=== PATIENT | male | born 1960 | race Caucasian/White ===

== ENCOUNTER 2019-06-23 15:26 | Emergency (ER) | payer OTHER ==
[~2019-06-23] VITALS: Ht 190.5 cm; Wt 72.6 kg
--- NOTE | 2019-06-23 15:39 | NUR ---
Patient discharged to home in stable conditon & brisl steady gait. Written and verbal after care instructions given to patient. Patient verbalizes understanding and compliance of instructions.
== END 2019-06-23 15:42 | disposition home or self-care (01) ==
LOC: ER 15:29
DX: L03.211 Cellulitis of face (principal)
CPT/HCPCS: A4663

== ENCOUNTER 2021-05-20 19:47 | Inpatient (IN) | payer OTHER ==
[~2021-05-20] VITALS: Ht 190.5 cm; Wt 72.6 kg
[2021-05-20] MEDS ORDERED: IV NORMAL SALINE 1000 ML BAG IV ONE (20:00)
--- NOTE | 2021-05-20 20:22 | NUR ---
Xray at bedside.
--- NOTE | 2021-05-20 20:30 | NUR ---
Pt out of ER for CT.
[2021-05-20 20:34] LABS: HEMATOCRIT 46.2 % (36.7-47.1); MEAN CORPUSCULAR HEMOGLOBIN 29.6 uug (23.8-33.4); MEAN CORPUSCULAR VOLUME 92.4 fL (73.0-96.2); PLATELET COUNT (AUTO) 191 K/uL (152-348)
[2021-05-20 20:39] LABS: ETHANOL < 3 MG/DL (0-0)
[2021-05-20 20:40] LABS: ALANINE AMINOTRANSFERASE 26 U/L (16-63); ALKALINE PHOSPHATASE 101 U/L (50-136); ASPARTATE AMINOTRANSFERASE 21 U/L (15-37); BILIRUBIN,DIRECT 0.1 mg/dL (0.0-0.2); BILIRUBIN,TOTAL 0.4 mg/dL (0.2-1.0); CARBON DIOXIDE 36 mmol/L (21-32); CHLORIDE 101 mmol/L (98-107); CREATININE 1.3 mg/dL (0.6-1.3); GLUCOSE 123 mg/dL (74-106); POTASSIUM 4.7 mmol/L (3.5-5.1); TOTAL PROTEIN, SERUM 7.8 g/dL (6.4-8.2); UREA NITROGEN, BLOOD 27 mg/dL (7-18)
--- NOTE | 2021-05-20 20:50 | NUR ---
Pt back to ER from CT.
--- NOTE | 2021-05-20 20:53 | NUR ---
Respiratory at bedside to place pt on bipap.
--- NOTE | 2021-05-20 23:05 | NUR ---
Inserted Florez catheter, pt tolerated procedure well, urine sample collected, sent to lab.
[2021-05-20 23:30] LABS: *BILIRUBIN,URIN NEGATIVE (NEGATIVE); *CLARITY,URINE CLEAR (CLEAR); *COLOR,URINE YELLOW (YELLOW); *KETONES,URINE 1+ (NEGATIVE); *UROBILINOGEN,URINE 0.2 E.U./dl (NORMAL); LEUKOCYTE ESTERASE ,URINE NEGATIVE (NEGATIVE); NITRITE, URINE NEGATIVE (NEGATIVE); PH,URINE 5.5 (5.0-8.0); UGLUCOSE NEGATIVE (NEGATIVE)
[2021-05-20 23:31] LABS: *BLOOD, URINE TRACE (NEGATIVE)
[2021-05-20 23:42] LABS: BACTERIA,URINE NONE SEEN /HPF (NONE SEEN); SQUAMOUS EPITHELIAL CELL,UR FEW /HPF (NONE SEEN); WBC,URINE 0-3 /HPF (0-3)
[2021-05-20 23:44] LABS: *AMPHETAMINE, URINE NEGATIVE (NEGATIVE); *CANNABINOID, URINE NEGATIVE (NEGATIVE); *COCCAINE, URINE POSITIVE (NEGATIVE); *OPIATE, URINE NEGATIVE (NEGATIVE); *PHENCYCLIDINE SCREEN,URINE NEGATIVE (NEGATIVE)
--- NOTE | 2021-05-21 00:11 | NUR ---
PATIENT WITH RESP. DISTRESS, USE OF ACCESSORY MUSCLE, PT ON 10L/M NC, INCREASE TO 6L/M NC, APPROX. 20:45 , AG WAS DONE, THEN RESULTS GIVEN TO DR EL, ORDER THEN FOR BI/PAP INITIAL SETTINGS, 15/5 RATE 20,50%, KEEP SAT 88-92 % , PT WITH A HIGH PCO2 , MONITOR CLOSELY, PT SEMI LETHARGIC. 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
--- NOTE | 2021-05-21 00:20 | NUR ---
Called [facility] to page Chika Ellis NP.
--- NOTE | 2021-05-21 00:28 | NUR ---
Called patient's house to get medication list, no answer, left voicemail.
--- NOTE | 2021-05-21 00:39 | NUR ---
Dr. Ruiz on panel call with Chika Ellis NP.
[2021-05-21] MEDS ORDERED: IV NS 1000 ML 1,000 ML IV PRN (01:30)
[2021-05-21] MEDS ORDERED: ONDANSETRON 4 MG/2 ML VIAL IV PRN (01:30)
[2021-05-21] MEDS ORDERED: MAGNESIUM HYDROXIDE 30 ML LIQUID UDC PO PRN (01:30)
[2021-05-21] MEDS ORDERED: ACETAMINOPHEN 325 MG TABLET PO PRN (01:30)
--- NOTE | 2021-05-21 01:46 | NUR ---
Report given to Dandy MALDONADO Tele.
[2021-05-21 02:26] VITALS: BP 149/103
[2021-05-21] MEDS: hydrALAZINE HCL IV 20 MG in IV NORMAL SALINE 50 ML IV SCH ×2 (03:03→05:20)
[2021-05-21 04:15] VITALS: BP 151/100
--- NOTE | 2021-05-21 06:00 | NUR ---
pt rested well in between care; repositioned for comfort; tolerated present BiPap setting and saturated 95%; pt had some snacks earlier while on 2L NC and sats 92. safety maintained; continue to monitor; continue plan of care.
[2021-05-21 06:28] LABS: ABG HCO3 35.6 mmol/L; ABG PCO2 101.4 mmHg (35.0-45.0); ABG PH 7.163 (7.350-7.450); ABG SITE LEFT RADIAL; ABG TOTAL HEMOGLOBIN 15.3 G/dL (13.5-18.0); COHb 2.4 % (0.5-1.5); MetHb 0.4 % (0.0-1.5); O2Hb 96.5 % (94.0-97.0); VENT MODE BIPAP
--- NOTE | 2021-05-21 08:00 | NUR ---
PT alert and oriented x 4. PT on BIPAP as ordered with saturation of 96%. Call light is within reach.
[2021-05-21] MEDS ORDERED: methylPREDNISolone SOD SUCC 125 MG/2 ML VIAL IV SCH (09:15)
--- NOTE | 2021-05-21 10:00 | NUR ---
Dr burger here to see patient notified of abg result. Per discussion between RT and DR burger pt ok to stay @ 4 liters with sat of 92%.
[2021-05-21 10:56] LABS: ABG BASE EXCESS 9.5 mmol/L; ABG HCO3 33.8 mmol/L; ABG PCO2 44.4 mmHg (35.0-45.0); ABG PO2 54.4 mmHg (75.0-100.0); ABG SITE LEFT RADIAL; ABG TOTAL HEMOGLOBIN 14.3 G/dL (13.5-18.0); COHb 1.2 % (0.5-1.5); MetHb 0.2 % (0.0-1.5); O2Hb 91.3 % (94.0-97.0); VENT MODE Nasal Cannula
[2021-05-21] MEDS ORDERED: ALBUTEROL SULFATE 2.5 MG/3 ML NEBU NEB PRN (11:15)
[2021-05-21] MEDS ORDERED: LISI20TA30 PO (12:09)
[2021-05-21] MEDS ORDERED: AMLO10TA59 PO (12:09)
[2021-05-21] MEDS ORDERED: hydrALAZINE HCL IV 20 MG in IV NORMAL SALINE 50 ML IV SCH (14:00)
[2021-05-21] MEDS: hydrALAZINE HCL 25 MG TABLET PO SCH ×2 (14:34→22:29)
[2021-05-21] MEDS: AMLODIPINE 10 MG TABLET PO SCH (16:50)
--- NOTE | 2021-05-21 18:00 | NUR ---
PT calling his main contact jose SILVA stating that he wants to leave AMA. Spoke with pt re staying over and that his CO2 is still elevated. PT tolerated 4lit with sat of 93%.
[2021-05-21 20:09] VITALS: BP 133/91
--- NOTE | 2021-05-21 22:00 | NUR ---
pt tolerating 4L NC; pt resting assisted with needs; tolerating current oxygen setting; no SOB; pt becomes tachy when pt urinating while standing up; continue to monitor.
[2021-05-22 00:03] VITALS: BP 140/93
[2021-05-22 04:09] VITALS: BP 139/93
[2021-05-22] MEDS: hydrALAZINE HCL 25 MG TABLET PO SCH ×2 (06:02→15:01)
[2021-05-22 06:46] LABS: HEMATOCRIT 43.6 % (36.7-47.1); MEAN CORPUSCULAR HEMOGLOBIN 29.2 uug (23.8-33.4); MEAN CORPUSCULAR VOLUME 88.9 fL (73.0-96.2); PLATELET COUNT (AUTO) 180 K/uL (152-348)
[2021-05-22 07:02] LABS: CREATININE 1.2 mg/dL (0.6-1.3); MAGNESIUM 2.1 mg/dL (1.8-2.4); PHOSPHOROUS 1.2 mg/dL (2.5-4.9); POTASSIUM 3.6 mmol/L (3.5-5.1)
[2021-05-22] MEDS: AMLODIPINE 10 MG TABLET PO SCH (08:34)
[2021-05-22 08:43] VITALS: BP 144/95
[2021-05-22] MEDS ORDERED: methylPREDNISolone SOD SUCC 125 MG/2 ML VIAL IV SCH (09:00)
[2021-05-22] MEDS ORDERED: methylPREDNISolone SOD SUCC 40 MG/ML VIAL IV SCH (09:00)
[2021-05-22] MEDS ORDERED: DOXY100C5 PO (11:06)
[2021-05-22] MEDS ORDERED: PRED20TA PO (11:06)
[2021-05-22 11:35] VITALS: BP 139/96
--- NOTE | 2021-05-22 15:12 | NUR ---
Discharge instructions reviewed with patient, as well as importance of following medication regimen, and to f/u with golf course assistant, patients expressed understanding. patients inventory list completed, patient stated his mother mina ronquillo will pick him up.
--- NOTE | 2021-05-22 15:13 | NUR ---
per patient mother is downstairs in lobby, iv site removed, minimal bleeding noted, patient wheeled downstairs. patient stable at time of discharge. v/s wnl, afebrile, no c.o sob at the time, rr even and non-labored. patient left on 4l via tank.
[2021-05-22 15:23] VITALS: BP 139/101
[2021-05-22] MEDS ORDERED: NEUTRA PHOS PACKET PO ONE (15:30)
[2021-05-22] MEDS ORDERED: ATORVASTATIN 10 MG TABLET PO SCH (21:00)
== END 2021-05-22 15:15 | disposition home or self-care (01) | DRG 816 ==
LOC: ER 19:48 → TELE3 05-21 01:50
PROVIDERS: ADMIT Nurse Practitioner Family; ATTEND Nurse Practitioner Family
PROC: 5A09357 Assistance with Respiratory Ventilation, Less than 24 Consecutive Hours, Continuous Positive Airway Pressure (ICD-10-PCS; principal; 2021-05-21)
DX: T40.5X1A Poisoning by cocaine, accidental (unintentional), initial encounter (principal); J96.01 Acute respiratory failure with hypoxia; G92.9 Unspecified toxic encephalopathy; J96.02 Acute respiratory failure with hypercapnia; E87.0 Hyperosmolality and hypernatremia; E87.2 Acidosis; E86.0 Dehydration; J44.9 Chronic obstructive pulmonary disease, unspecified; R00.0 Tachycardia, unspecified; I10 Essential (primary) hypertension; Z20.822 Contact with and (suspected) exposure to COVID-19; Z87.891 Personal history of nicotine dependence; M19.90 Unspecified osteoarthritis, unspecified site; J98.11 Atelectasis; Z99.81 Dependence on supplemental oxygen; F14.188 Cocaine abuse with other cocaine-induced disorder; Y92.009 Unspecified place in unspecified non-institutional (private) residence as the place of occurrence of the external cause
CPT/HCPCS: 36415; 36600; 70030-TC; 70450; 71045; 83605; 83735; 84100; 85025; 85730; 93005; 94660; A4663; C1758; G0378; G0480; J0360; J2920; J2930; J3490; J7030

== ENCOUNTER 2021-06-15 15:33 | Emergency (ER) | payer OTHER ==
[~2021-06-15] VITALS: Ht 190.5 cm; Wt 77.1 kg
[~2021-06-15 15:33] MED LIST: AMLO10TA59 PO; DOXY100C5 PO; LISI20TA30 PO; PRED20TA PO
[2021-06-15 15:56] LABS: ABG BASE EXCESS -2.3 mmol/L; ABG PCO2 94.2 mmHg (35.0-45.0); ABG PH 7.121 (7.350-7.450); ABG PO2 65.1 mmHg (75.0-100.0); ABG SITE LEFT RADIAL; COHb 1.6 % (0.5-1.5); MetHb 0.4 % (0.0-1.5); O2Hb 89.2 % (94.0-97.0); VENT MODE Nasal Cannula
[2021-06-15] MEDS ORDERED: ALBUTEROL SULFATE 2.5 MG/3 ML NEBU NEB ONE (16:00)
[2021-06-15] MEDS ORDERED: IPRATROPIUM BROMIDE 0.5 MG/2.5 ML NEBU NEB ONE (16:00)
[2021-06-15] MEDS ORDERED: methylPREDNISolone SOD SUCC 125 MG/2 ML VIAL IV ONE (16:00)
[2021-06-15 16:09] LABS: HEMATOCRIT 43.6 % (36.7-47.1); MEAN CORPUSCULAR HEMOGLOBIN 29.1 uug (23.8-33.4); PLATELET COUNT (AUTO) 195 K/uL (152-348)
[2021-06-15 16:16] LABS: CARBON DIOXIDE 35 mmol/L (21-32); CHLORIDE 97 mmol/L (98-107); CREATININE 2.4 mg/dL (0.6-1.3); ETHANOL < 3 MG/DL (0-0); GLUCOSE 141 mg/dL (74-106); POTASSIUM 4.7 mmol/L (3.5-5.1); UREA NITROGEN, BLOOD 59 mg/dL (7-18)
[2021-06-15] MEDS ORDERED: IPRATROPIUM BROMIDE 0.5 MG/2.5 ML NEBU ONE (16:27)
[2021-06-15] MEDS ORDERED: ALBUTEROL SULFATE 2.5 MG/3 ML NEBU ONE (16:27)
[2021-06-15 16:28] LABS: ALANINE AMINOTRANSFERASE 24 U/L (16-63); ALKALINE PHOSPHATASE 94 U/L (50-136); ASPARTATE AMINOTRANSFERASE 32 U/L (15-37); BILIRUBIN,DIRECT 0.1 mg/dL (0.0-0.2); BILIRUBIN,TOTAL 0.3 mg/dL (0.2-1.0); TOTAL PROTEIN, SERUM 7.4 g/dL (6.4-8.2)
[2021-06-15 16:29] LABS: THYROID STIMULATING HORMONE 0.594 mIU/mL (0.358-3.740)
[2021-06-15 16:30] LABS: ACETAMINOPHEN < 2.0 ug/mL (10-30)
[2021-06-15] MEDS ORDERED: methylPREDNISolone SOD SUCC 125 MG/2 ML VIAL ONE (16:30)
--- NOTE | 2021-06-15 17:04 | NUR ---
Patient is resting comfortably on gurney with eyes closed and he is tolerating the BIPAP well. Current BIPAP parameters are: rate=20, IPAP=15, EPAP=5, FiO2=50%.
[2021-06-15] MEDS ORDERED: IV NS 1000 ML 1,000 ML IV PRN (17:15)
[2021-06-15] MEDS ORDERED: Z GUARD REMEDY PASTE 57 GM TUBE TOP PRN (17:15)
[2021-06-15] MEDS ORDERED: ALBUTEROL SULFATE 2.5 MG/ 0.5 ML NEBU NEB ONE (17:15)
[2021-06-15] MEDS ORDERED: MAGNESIUM HYDROXIDE 30 ML LIQUID UDC PO PRN (17:15)
[2021-06-15] MEDS ORDERED: ACETAMINOPHEN 325 MG TABLET PO PRN (17:15)
[2021-06-15] MEDS ORDERED: IPRATROPIUM BROMIDE 0.5 MG/2.5 ML NEBU NEB SCH (17:15)
[2021-06-15] MEDS ORDERED: ONDANSETRON 4 MG/2 ML VIAL IV PRN (17:15)
--- NOTE | 2021-06-15 17:50 | NUR ---
[facility] hospitalist ([email or web address].
[2021-06-15 17:59] LABS: *BILIRUBIN,URIN NEGATIVE (NEGATIVE); *BLOOD, URINE NEGATIVE (NEGATIVE); *COLOR,URINE YELLOW (YELLOW); *KETONES,URINE NEGATIVE (NEGATIVE); *UROBILINOGEN,URINE 0.2 E.U./dl (NORMAL); LEUKOCYTE ESTERASE ,URINE NEGATIVE (NEGATIVE); NITRITE, URINE NEGATIVE (NEGATIVE); UGLUCOSE NEGATIVE (NEGATIVE)
[2021-06-15] MEDS ORDERED: AZITHROMYCIN IV 500 MG in IV DEXTROSE 5% 250 ML IV ONE (18:00)
[2021-06-15] MEDS ORDERED: CEFTRIAXONE 1 G in IV DEXTROSE 5% 50 ML IV ONE (18:00)
[2021-06-15 18:07] LABS: *CLARITY,URINE SLIGHTLY HAZY (CLEAR); BACTERIA,URINE FEW /HPF (NONE SEEN); RBC,URINE 0-3 /HPF (0-3); SQUAMOUS EPITHELIAL CELL,UR FEW /HPF (NONE SEEN); URINE AMORPHOUS URATE MODERATE /HPF
[2021-06-15 18:14] LABS: *AMPHETAMINE, URINE NEGATIVE (NEGATIVE); *CANNABINOID, URINE NEGATIVE (NEGATIVE); *COCCAINE, URINE POSITIVE (NEGATIVE); *OPIATE, URINE NEGATIVE (NEGATIVE); *PHENCYCLIDINE SCREEN,URINE NEGATIVE (NEGATIVE)
[2021-06-15] MEDS ORDERED: AZITHROMYCIN 500MG/ D5W 250ML IVPB **ER PYXIS ONLY IV ONE (18:38)
[2021-06-15] MEDS ORDERED: CEFTRIAXONE /D5W 50ML IVPB **ER PYXIS IV ONE (18:38)
--- NOTE | 2021-06-15 19:14 | NUR ---
SBAR given to JOEL Spears. Patient is waiting for ICU/CCU beds@this time.
--- NOTE | 2021-06-15 19:15 | NUR ---
RECEIVED REPORT FROM JOEL VIDAL. PT NOTED TO BE IN BED, IN NO DISTRESS. VITALS STABLE.
[2021-06-15 19:23] LABS: ABG BASE EXCESS 0.1 mmol/L; ABG HCO3 29.5 mmol/L; ABG PCO2 70.8 mmHg (35.0-45.0); ABG PH 7.237 (7.350-7.450); ABG PO2 102.1 mmHg (75.0-100.0); ABG SITE RIGHT RADIAL; ABG TOTAL HEMOGLOBIN 14.3 G/dL (13.5-18.0); COHb 1.3 % (0.5-1.5); MetHb 0.4 % (0.0-1.5); O2Hb 96.2 % (94.0-97.0); VENT MODE BIPAP 15/5
--- NOTE | 2021-06-15 19:23 | NUR ---
Patient is resting comfortably on gurney and is tolerating the BIPAP well. Current BIPAP parameters are: rate=20, IPAP=20, EPAP=5, FiO2=50%. Awake and alert, verbal, denies any pain and discomfort at this time. Bed in lowest position for safety precautions.
--- NOTE | 2021-06-15 19:44 | NUR ---
Pt is on Respironics V-60 on settings of BIPAP 20/5, resp. rate 20, FIO2-50%. No resp. distress noted. Pt to be monitored throughout the shift. BVM is at bedside.
--- NOTE | 2021-06-15 20:37 | NUR ---
ariana méndez juanjose called for status update. update on condition provided.
--- NOTE | 2021-06-15 21:55 | NUR ---
Patient is resting comfortably in bed with eyes closed. Tolerating BiPap.
--- NOTE | 2021-06-15 23:42 | NUR ---
PT VOMITED CLEAR FLUID AT 2320 PM. BIPAP MASK WAS REMOVED AND CLEANED. PT'S MOUTH WAS CLEANED. PT REFUSED TO HAVE A NEW BIPAP MASK PLACED. PT WAS PLACED ON [address] EL WAS AT BEDSIDE TO [place] PATIENT. PATIENT REMAINS ON 4 LITERS NC. STAT ABG ORDERED. OFFERED ZOFRAN IVP FOR PATIENT INITIALLY HE SAID HE WOULD TAKE THE MEDICINE UPON BEDSIDE HE CHANGED HIS MIND AND SAYS HE NO LONGER WANTS THE ZOFRAN.
--- NOTE | 2021-06-15 23:45 | NUR ---
RT IS A BEDSIDE TO DRAW PATIENT FOR STAT ABG ORDERED.
[2021-06-15] MEDS ORDERED: ONDANSETRON 4 MG/2 ML VIAL ONE (23:47)
[2021-06-16] LABS: ABG BASE EXCESS 5.5 mmol/L; ABG PCO2 54.4 mmHg (35.0-45.0); ABG PH 7.388 (7.350-7.450); ABG PO2 72.9 mmHg (75.0-100.0); ABG SITE RIGHT RADIAL; ABG TOTAL HEMOGLOBIN 14.7 G/dL (13.5-18.0); MetHb 0.3 % (0.0-1.5); O2Hb 94.4 % (94.0-97.0); VENT MODE Nasal Cannula
--- NOTE | 2021-06-16 00:07 | NUR ---
ABG RESULTS GIVEN TO DR. EL. ABG FOLLOWS PH 7.38 PCO2 54.4 PO2 72.9 HCO3 32.0. KEEP PT ON [address] EL PT MAY EAT AND DRINK.
--- NOTE | 2021-06-16 00:31 | NUR ---
pt was assisted to side of bed to stand to urinate. pt was able to urinate 400 clear yellow urine. provided pt with sandwhich and hot tea.
--- NOTE | 2021-06-16 01:31 | NUR ---
pt remains on 4 liters nc, glen well. vss, pt resting with eyes closed.
--- NOTE | 2021-06-16 03:49 | NUR ---
Patient is resting comfortably in bed with eyes closed. Breathing even and unlabored. Vitals stable.
--- NOTE | 2021-06-16 05:42 | NUR ---
PROVIDED PT WITH ORAL HYDRATION. DENIES ANY PAIN/DISCOMFORT. VITALS STABLE. NOTED TO BE WATCHING TV.
--- NOTE | 2021-06-16 06:16 | NUR ---
assisted pt to stand, pt was able to urinate without any difficulites. pt denies sob, or c/p.
--- NOTE | 2021-06-16 06:26 | NUR ---
Pt refused ABG. No resp. distress noted.
--- NOTE | 2021-06-16 07:00 | NUR ---
Recived pt from chiki rn and Miccheal rn ( orintation) pt awake and alert respiration spont and easy Hob elevated withFIO 2 LNC CONTENUE ON o2 sat 96% pt able to verblized need
--- NOTE | 2021-06-16 07:14 | NUR ---
GAVE REPORT TO JAKE, WASHERY ENGINEER.
[2021-06-16 07:19] LABS: HEMATOCRIT 38.2 % (36.7-47.1); MEAN CORPUSCULAR VOLUME 88.8 fL (73.0-96.2); PLATELET COUNT (AUTO) 167 K/uL (152-348)
[2021-06-16 07:31] LABS: BILIRUBIN,TOTAL 0.3 mg/dL (0.2-1.0); CREATININE 2.2 mg/dL (0.6-1.3); MAGNESIUM 2.3 mg/dL (1.8-2.4); PHOSPHOROUS 2.2 mg/dL (2.5-4.9); POTASSIUM 4.5 mmol/L (3.5-5.1); TOTAL PROTEIN, SERUM 6.1 g/dL (6.4-8.2)
--- NOTE | 2021-06-16 08:00 | NUR ---
PT fully awake and alert respiration spont and easy fio2 4lnc contenue on pulas oxmitery 96-97% hob 45% all time breackfeast obtended eat will 90% tolorated po intack
[2021-06-16] MEDS ORDERED: methylPREDNISolone SOD SUCC 40 MG/ML VIAL ONE (08:48)
[2021-06-16] MEDS ORDERED: methylPREDNISolone SOD SUCC 40 MG/ML VIAL IV SCH (09:00)
--- NOTE | 2021-06-16 09:30 | NUR ---
pt refused contenue tx and admin in hospitale inpt and requsted to sign AMA PT FULLY AND VERBLIZED UNDERSTOOD RISK OF LEAVING HOSPITALE AND he need O2 all time he HE WILL pt said i have o2 at home HERE AWRE PT WHAN sign AMA HE WILL CAME BACK to [place] with pt at 10am notefy pt pt refused and requsted to leave befor to [place] with
--- NOTE | 2021-06-16 09:45 | NUR ---
MOTHER HERE AT BED SIDE fully understood risk of leaving pt AMA HE need o2 in this mint pt fully awake and alert walking with stady gait no distress fio2 with mother in car d/c hl done and elie tapia no bleeding on site accompany pt to mother car pt appled o2 in care and he was diver
[2021-06-16 10:31] VITALS: BP 125/80
== END 2021-06-16 09:50 | disposition left against medical advice (07) ==
LOC: ER 15:34
DX: J96.21 Acute and chronic respiratory failure with hypoxia (principal); R91.8 Other nonspecific abnormal finding of lung field; J96.22 Acute and chronic respiratory failure with hypercapnia; G93.41 Metabolic encephalopathy; R55 Syncope and collapse; I24.8 Other forms of acute ischemic heart disease; E87.4 Mixed disorder of acid-base balance; N17.9 Acute kidney failure, unspecified; I12.9 Hypertensive chronic kidney disease with stage 1 through stage 4 chronic kidney disease, or unspecified chronic kidney disease; N18.9 Chronic kidney disease, unspecified; J44.9 Chronic obstructive pulmonary disease, unspecified; E78.49 Other hyperlipidemia; Z20.822 Contact with and (suspected) exposure to COVID-19; Z53.29 Procedure and treatment not carried out because of patient's decision for other reasons
CPT/HCPCS: 36415; 36600 ×3; 51702; 70450; 71045; 80048; 80053; 80076; 80179; 80299; 80307; 80320; 81001; 82962; 83735; 83880; 84100; 84443; 84484 ×3; 85025 ×2; 85730; 87040 ×2; 87086; 87426; 93005; 94644; 94660; 96365; 96366; 96367; 96368; 96375; 96376; 99291; J0456; J0696; J2920; J2930; 70030-TC; A4663; C1758; G0480; J2405; J3590

== ENCOUNTER 2021-06-30 14:36 | Emergency (ER) | payer OTHER ==
[~2021-06-30] VITALS: Ht 190.5 cm; Wt 77.1 kg
[2021-06-30] MEDS ORDERED: MORPHINE SULFATE 2 MG/1 ML DISP.SYRIN IV ONE (14:45)
[2021-06-30] MEDS ORDERED: ONDANSETRON 4 MG/2 ML VIAL IV ONE (14:45)
[2021-06-30] MEDS ORDERED: MORPHINE SULFATE 4 MG/1 ML DISP.SYRIN ONE (14:56)
[2021-06-30] MEDS ORDERED: ONDANSETRON 4 MG/2 ML VIAL ONE (14:56)
[2021-06-30] MEDS ORDERED: BACK1EAC12 MC (16:20)
[2021-06-30] MEDS ORDERED: HYDR-3980 PO (16:23)
--- NOTE | 2021-06-30 16:43 | NUR ---
Removed IV intact, site okay, bandaged. Gave pt RX and d/c instructions, pt verbalized understanding.
[2021-06-30 16:45] VITALS: BP 144/101
== END 2021-06-30 16:47 | disposition home or self-care (01) ==
LOC: ER 14:37
DX: S22.079A Unspecified fracture of T9-T10 vertebra, initial encounter for closed fracture (principal); X58.XXXA Exposure to other specified factors, initial encounter; Y92.89 Other specified places as the place of occurrence of the external cause; J44.9 Chronic obstructive pulmonary disease, unspecified; Z99.81 Dependence on supplemental oxygen; I10 Essential (primary) hypertension; E78.5 Hyperlipidemia, unspecified
CPT/HCPCS: 72128; 72131; 96374; 96375; 99285; J2270; J2405; A4663